=== PATIENT | male | born 1970 | race Caucasian/White ===

== ENCOUNTER 2018-04-25 04:49 | Emergency (ER) | payer OTHER ==
[~2018-04-25] VITALS: Ht 175.3 cm; Wt 86.4 kg
[~2018-04-25 04:49] MED LIST: AMLO-512 PO; ATEN-187 PO; ATOR20TA86 PO; GEMF600T4 PO
[2018-04-25 04:59] LABS: GLUCOSE,POINT OF CARE 384 MG/DL (70-110)
[2018-04-25] MEDS ORDERED: LISI-660 PO (05:10)
[2018-04-25] MEDS ORDERED: CARV3 PO (05:10)
[2018-04-25] MEDS ORDERED: SITA25 PO (05:10)
[2018-04-25] MEDS ORDERED: CARVEDILOL 3.125 MG TABLET PO ONE (06:15)
[2018-04-25] MEDS ORDERED: LISINOPRIL 10 MG TABLET PO ONE (06:15)
[2018-04-25 06:40] VITALS: BP 145/99
== END 2018-04-25 06:42 | disposition home or self-care (01) ==
LOC: EMS 04:49
DX: S71.132A Puncture wound without foreign body, left thigh, initial encounter (principal); E11.65 Type 2 diabetes mellitus with hyperglycemia; I10 Essential (primary) hypertension; E78.00 Pure hypercholesterolemia, unspecified; I25.2 Old myocardial infarction; F17.210 Nicotine dependence, cigarettes, uncomplicated; Z79.899 Other long term (current) drug therapy; Z79.84 Long term (current) use of oral hypoglycemic drugs; W54.0XXA Bitten by dog, initial encounter; Y93.89 Activity, other specified; Y92.89 Other specified places as the place of occurrence of the external cause; Y99.8 Other external cause status
CPT/HCPCS: 99283; 99406

== ENCOUNTER 2022-01-21 21:34 | Emergency (ER) | payer OTHER ==
[~2022-01-21] VITALS: Ht 175.3 cm; Wt 81.8 kg
[~2022-01-21 21:34] MED LIST changes: -AMLO-512 PO; -ATEN-187 PO; -ATOR20TA86 PO; +CARV3 PO; -GEMF600T4 PO; +LISI-892 PO; +SITA25 PO
[2022-01-21 21:58] LABS: BASOPHILS % (AUTO) 0.3 % (0.0-2.0); EOSINOPHILS % (AUTO) 0.7 % (1.0-6.0); HEMATOCRIT 46.6 % (41-53); HEMOGLOBIN 15.6 g/dL (13.5-17.5); LYMPHOCYTES # (AUTO) 1.4 K/uL (1.0-4.8); LYMPHOCYTES % (AUTO) 11.9 % (22.0-44.0); MEAN CORPUSCULAR HGB CONC 33.4 G/dL (31.0-37.0); MEAN CORPUSCULAR VOLUME 84 fL (80-100); MONOCYTES # (AUTO) 0.6 K/uL (0.1-1.0); MONOCYTES % (AUTO) 4.8 % (2.0-9.0); NEUTROPHILS # (AUTO) 9.7 K/uL (1.8-7.7); NEUTROPHILS % (AUTO) 82.3 % (40.0-70.0); PLATELET COUNT (AUTO) 253 K/uL (150-450); RED BLOOD CELL COUNT(AUTO) 5.57 MIL/uL (4.50-5.90); RED CELL DISTRIBUTION WIDTH 13.2 % (11.5-14.5)
[2022-01-21] MEDS ORDERED: SODIUM CHLORIDE 0.9% 1,000 ML IV ONE (22:00)
[2022-01-21] MEDS ORDERED: INSULIN REGULAR, HUMAN 100 UNITS/ML IVP ONE (22:00)
[2022-01-21 22:12] LABS: ALANINE AMINOTRANSFERASE 25 U/L (12-78); ALBUMIN 3.4 g/dL (3.4-5.0); ALKALINE PHOSPHATASE 101 U/L (46-116); ANION GAP 8 mmol/L (8-16); ASPARTATE AMINOTRANSFERASE 11 U/L (15-37); BILIRUBIN,TOTAL 0.6 mg/dL (0.1-1.0); CALCIUM, TOTAL 8.9 mg/dL (8.8-10.5); CARBON DIOXIDE 31 mmol/L (22-29); CHLORIDE 98 mmol/L (98-107); CREATININE 1.11 mg/dL (0.60-1.30); GLOMERULAR FILTR. RATE CALC > 60 mL/min (>60); POTASSIUM 4.4 mmol/L (3.5-5.1); SODIUM SERUM 137 mmol/L (136-145); UREA NITROGEN, BLOOD 13 mg/dL (7-18)
[2022-01-21 22:16] LABS: GLUCOSE,RANDOM 456 mg/dL (70-110)
[2022-01-21 23:16] LABS: GLUCOMETER DEV NAME(LOC) ERT.5; GLUCOSE,POINT OF CARE 379 MG/DL (70-110)
[2022-01-22] MEDS ORDERED: ACETAMINOPHEN 500 MG TABLET PO ONE
[2022-01-22 01:46] LABS: GLUCOMETER DEV NAME(LOC) ERT.5; GLUCOSE,POINT OF CARE 365 MG/DL (70-110)
[2022-01-22 02:59] VITALS: BP 155/100
[2022-01-22] MEDS ORDERED: METF-283 PO (03:02)
[2022-01-22] MEDS ORDERED: LISI-661 PO (03:02)
== END 2022-01-22 03:31 | disposition home or self-care (01) ==
LOC: EMS 21:37
DX: R07.9 Chest pain, unspecified (principal); E86.0 Dehydration; F17.210 Nicotine dependence, cigarettes, uncomplicated; E11.65 Type 2 diabetes mellitus with hyperglycemia; E78.00 Pure hypercholesterolemia, unspecified; I10 Essential (primary) hypertension
CPT/HCPCS: 36415; 80053; 82962; 84484; 85025; 93005; 96361; 96374; 99284; J1815; J7030